=== PATIENT | male | born 1950 | race Caucasian/White ===

== ENCOUNTER → 2017-06-18 | Day surgery (SDC) | payer BC, OTHER ==
[~2017-06-18] MED LIST: B & O ONE; CEFAZOLIN 1 GM VIAL ONE; CEFAZOLIN/Water 2 GM/20 ML SYRINGE ONE; Dexamethasone 20 MG/5 ML VIAL ONE; Fentanyl 100 MCG/2 ML VIAL ONE; Iothalamate Meglumine 60% 50 ML VIAL FS ONE; Ketorolac Tromethamine 30 MG/ML VIAL ONE; Lidocaine 1% PF 5 ML VIAL ONE; Midazolam HCl 2 mg/2 ml Vial ONE; Morphine 4 MG/ML VIAL ONE; Ondansetron HCl/PF 4 MG/2 ML Vial ONE; Propofol 200 MG/20 ML VIAL ONE; Sterile Water 10 ML VIAL ONE
[2017-06-18 14:06] LABS: #Eosinphils 0.4 thou/uL (0.0-0.7); #Lymphocytes 1.3 thou/uL (1.20-3.40); #Monocytes 0.9 thou/uL (0.11-0.59); #Neutrophils 7.8 thou/uL (1.40-6.50); %Basophils 0.3 % (0.0-1.0); %Eosinophils 3.4 % (0.0-10.0); %Lymphocytes 12.4 % (21.0-51.0); %Monocytes 8.5 % (0.0-10.0); Hematocrit 47.5 % (42.0-52.0); Mean Platelet Volume 8.5 fL (7.4-10.4); Red Blood Cell (RBC) Count 5.06 mill/uL (4.70-6.10); White Blood Cell (WBC) Count 10.3 thou/uL (4.8-10.8)
[2017-06-18 14:29] LABS: ALT (SGPT) 34 U/L (8-55); AST (SGOT) 22 U/L (5-34); Alkaline Phosphatase 53 U/L (40-150); Anion Gap 12 mmol/L (10-20); BUN (Urea Nitrogen) 21 mg/dL (8.4-25.7); Bilirubin, Total 1.1 mg/dL (0.2-1.2); Calc. Creatinine Clearance 0 mL/min (70-130); Calcium 9.7 mg/dL (7.8-10.44); Carbon Dioxide 26 mmol/L (23-31); Chloride 105 mmol/L (98-107); Estimated GFR-MDRD 75; Globulin 2.8 g/dL (2.4-3.5); Lipase 17 U/L (8-78); Protein, Total 6.9 g/dL (5.8-8.1)
--- NOTE | 2017-06-18 18:34 | CT ---
NONCONTRAST CT ABDOMEN AND PELVIS 06/18/17 HISTORY: Right flank pain with pain radiating to the abdomen. History of prior kidney stones. COMPARISON: 01/22/10. FINDINGS: Again noted are postsurgical changes related to cholecystectomy. There are nonobstructing bilateral renal calculi again noted. There is mild right hydronephrosis and hydroureter with a calculus seen at the right UVJ measuring approximately 10 mm. No left ureteral maurisio culus is present. There is a 3.8 cm low density lesion mid portion of the right kidney which does demonstrate an atten uation coefficient suggestive of a cyst. This is larger in size compared to prior study in 2009 where this measured 2.2 cm but again is likely related to enlargement of the cyst. There is asymmetric perinephric stranding seen on the right compared to the left. There is bibasilar atelectasis. The liver, spleen, pancreas, bilateral adrenal glands, and decompressed urinary bladder demonstrate a grossly normal nonenlarged CT appearance. The appendix is visualized and normal in caliber. Degenerative changes are seen in the spine. IMPRESSION: 1. Partially obstructing right UVJ calculus measuring 10 mm with resultant mild to moderate righ t hydronephrosis and hydroureter. 2. Nonobstructing bilateral nephrolithiasis. Enlargement of a right renal cyst. 3. Postcholecystectomy changes. POS: WILLARD
--- NOTE | 2017-06-18 22:19 | OP ---
DATE OF PROCEDURE: 06/18/2017 PREOPERATIVE DIAGNOSIS: Right ureteral stone. POSTOPERATIVE DIAGNOSIS: Right ureteral stone, right complete duplication of the ureter. SURGEON: Gamal Vela M.D. ANESTHESIA: General. INDICATIONS: Mr. Walekr was presented to the emergency room with acute onset of right-sided flank pain . He has a prior history of stone disease, having had ESWL several years ago. Imaging demonstrated a right-sided distal ureteral stone approximately 1 cm in size. DETAILS OF PROCEDURE: The patient was given general anesthesia and IV antibiotics. He was sterilely prepped and draped in the lithotomy position. Cystoscope was passed into the bladder and bladder ex amined in its entirety. There were no mucosal abnormalities. Right ureteral orifice was intubated w ith a floppy tip guidewire, which was passed cephalad under fluoroscopic control. There was also ano ther ureteral orifice was noted in very close proximity. After the first stent was placed, a retrogr fauzia pyelogram was performed on the other ureteral orifice and it did contain the stone and was associ ated with the upper pole of the right kidney. A guidewire was passed through this ureter and a 6 x 2 8 double-J stent was passed over the guidewire and coiled in the right renal pelvis and in the bladde r as determined fluoroscopically and cystoscopically. The previous right ureteral stent, that was as sociated with the right lower pole moiety, was grasped and removed. The bladder was drained and cyst oscope was removed. The patient tolerated the procedure well. He was transported from the operating room to recovery room in stable condition. COMPLICATIONS: None. ESTIMATED BLOOD LOSS: Minimal.
--- NOTE | 2017-06-19 01:35 | CON ---
DATE OF CONSULTATION: 06/18/2017 CHIEF COMPLAINT: Right ureteral stone. HISTORY OF PRESENT ILLNESS: Mr. Walker is a 66-year-old gentleman who presented to the emergency room with acute onset of right-sided flank pain. He has a prior history of stones and felt this was remin iscent of that pain. He also had associated nausea. He denies any fevers or chills. He denies any change in his urinary pattern. Prior treatment for his stone was ureteral stent placement followed b y ESWL. This was approximately [address] Kevin. PAST MEDICAL HISTORY: Hypertension. PAST SURGICAL HISTORY: Thyroid surgery, left knee surgery, left biceps tendon repair, cholecystectom y, ESWL. ALLERGIES: No known drug allergies. SOCIAL HISTORY: He is a nonsmoker. Denies alcohol overuse. CHRONIC MEDICATIONS: Please see MAR. REVIEW OF SYSTEMS: Neurologic: No altered mental status or dementia. HEENT: No recent changes in thyroid function. He has had thyroid surgery before. Respiratory: Denies any wheezing or shortnes s of breath. Cardiovascular: Denies any chest pain or palpitations. Gastrointestinal: Denies chemist steroids neil constipation or diarrhea. Musculoskeletal: No new joint or muscle complaints. Genitourinary: Please see history of present illness. PHYSICAL EXAMINATION: VITAL SIGNS: Most recent blood pressure is 165/100, pulse 66, respiratory rate 20, temperature 97.8. HEENT: Normocephalic, atraumatic. NECK: Supple, without masses. LUNGS: Clear to auscultation. CARDIOVASCULAR: Regular rhythm. ABDOMEN: Soft, nontender. No palpable masses. Liver and spleen are palpable. No abdominal tendern ess noted. IMPRESSION: Mr. Walker is a 66-year-old gentleman with a 1 cm distal right ureteral stone. He had isabela n that was difficult to control in the emergency room. He is opted to proceed with a stent placement . He understands he will require additional surgery for treatment of the stone in the future. It is also possible the stent will not be easily placed and he would need percutaneous nephrolithotripsy. The procedure, potential limitations, alternatives, and complications have been discussed with him a nd he does wish to proceed. PLAN: Cystoscopy, right double-J stent placement.
== END ==
LOC: ERS 13:42 → SDC 15:25
PROVIDERS: ATTEND Urology
PROC: 0TC68ZZ Extirpation of Matter from Right Ureter, Via Natural or Artificial Opening Endoscopic (ICD-10-PCS; principal; 2017-06-18)
PROC: 0T768DZ Dilation of Right Ureter with Intraluminal Device, Via Natural or Artificial Opening Endoscopic (ICD-10-PCS; principal; 2017-06-18)
DX: N20.1 Calculus of ureter (principal); Z98.890 Other specified postprocedural states
CPT/HCPCS: 36415; 74176; 74420; 80053; 83690; 85025; 96361; 96374; 96375; A4216; C1758; C1769; J0690; J1100; J1885; J2001; J2250; J2270; J2405; J2704; J3010; Q9961

== ENCOUNTER 2018-08-07 07:03 | Outpatient (CLI) | payer BC, MEDICARE ==
[2018-08-07 17:37] LABS: Anion Gap 12 mmol/L (10-20); BUN (Urea Nitrogen) 31 mg/dL (8.4-25.7); Calc. Creatinine Clearance 0 mL/min (70-130); Calcium 9.4 mg/dL (7.8-10.44); Carbon Dioxide 24 mmol/L (23-31); Chloride 108 mmol/L (98-107); Estimated GFR-MDRD 61; Glucose 81 mg/dL (80-115); Potassium 4.2 mmol/L (3.5-5.1); Sodium 140 mmol/L (136-145)
[2018-08-07 17:49] LABS: Bilirubin Negative (Negative); Blood, Urine Negative (Negative); Clarity CLEAR (Clear); Glucose, Urine (Dipstick) Negative (Negative); Leukocyte Negative (Negative); Nitrite Negative (Negative); Protein, Urine (Dipstick) Negative (Neg-Trace); Specific Gravity, Urine 1.021 (1.002-1.036); pH, Urine 6.5 (5.0-9.0)
[2018-08-07 17:54] LABS: Bacteria/HPF None Seen HPF (None Seen); Hyaline Casts/LPF 0-3 HYALINE CAST LPF (0-3 Hyaline); RBC/HPF 0-3 HPF (0-3); Squamous Epithelial None Seen HPF (0-3); WBC/HPF None Seen HPF (0-3)
[2018-08-07 19:35] LABS: Eosinophils 10 % (0-10); Hemoglobin 15.6 g/dL (14.0-18.0); Lymphocytes 27 % (21-51); MDiff Complete? YES; Mean Corpuscular HGB CONC 34.9 g/dL (32.0-36.0); Mean Corpuscular Hemoglobin 31.7 pg (27.0-31.0); Mean Corpuscular Volume 90.8 fL (78.0-98.0); Mean Platelet Volume 9.3 fL (7.4-10.4); Monocytes 12 % (0-10); Neutrophil 47 % (42-75); Platelet Count 178 thou/uL (130-400); Platelet Morphology Comment Appears Adequate; RBC Distribution Width 11.9 % (11.5-14.5); RBC Morphology Normal; Reactive Lymphocytes 3 % (0-10); Red Blood Cell (RBC) Count 4.92 mill/uL (4.70-6.10); White Blood Cell (WBC) Count 6.3 thou/uL (4.8-10.8)
== END 2018-08-07 07:04 | disposition home or self-care (01) ==
LOC: LABBT 07:03
PROVIDERS: ATTEND Orthopaedic Surgery
DX: Z01.818 Encounter for other preprocedural examination (principal); M19.012 Primary osteoarthritis, left shoulder
CPT/HCPCS: 80048; 81001; 85007; 85027; 87081; 93005; 93010

== ENCOUNTER 2018-08-07 15:15 | Inpatient (IN) | payer BC, MEDICARE ==
[2018-08-07 16:09] VITALS: BMI 32.3
[2018-08-10] MEDS ORDERED: Sodium Chloride 0.9% 100 ML ONE (06:02)
[2018-08-10] MEDS ORDERED: CEFAZOLIN 2 GM/50 ML BAG ONE (06:02)
[2018-08-10] MEDS ORDERED: Tranexamic Acid 1,000 MG/10 ML VIAL ONE (06:02)
[2018-08-10] MEDS ORDERED: Vancomycin HCl 1.5 GM in Sodium Chloride 0.9% 250 ML 300 ML IVPB SCH ×2 (06:15→18:00)
[2018-08-10] MEDS ORDERED: Fentanyl 100 MCG/2 ML VIAL ONE ×2 (06:36→07:08)
[2018-08-10] MEDS ORDERED: Midazolam HCl 2 mg/2 ml Vial ONE (06:36)
[2018-08-10] MEDS ORDERED: Famotidine/PF 20 mg/2ml Vial ONE (07:08)
[2018-08-10] MEDS ORDERED: traMADol HCl 50 MG TAB PO PRN ×4 (08:23→12:05)
[2018-08-10] MEDS ORDERED: Ropivacaine 0.2% 550 ML 550 ML NERVE BLCK SCH (08:23)
[2018-08-10] MEDS ORDERED: HYDROcodone/Acetaminophen 10/325 mg Tablet PO PRN ×4 (08:23→12:05)
[2018-08-10] MEDS ORDERED: Promethazine HCl 25 MG/ML VIAL IM PRN (08:23)
[2018-08-10] MEDS ORDERED: Ondansetron PF 4 MG/2 ML Vial IVP PRN ×2 (08:23→12:05)
[2018-08-10] MEDS ORDERED: Zolpidem Tartrate 5 MG TAB PO PRN ×2 (08:23→12:05)
[2018-08-10] MEDS ORDERED: Fentanyl 100 MCG/2 ML VIAL SLOW IVP PRN (08:24)
[2018-08-10] MEDS ORDERED: Acetaminophen 1,000 MG in Premix Bag 1 BAG IVPB PRN (08:25)
--- NOTE | 2018-08-10 11:55 | RAD ---
LEFT SHOULDER THREE VIEWS: HISTORY: Postop film. FINDINGS: This film shows postoperative changes of the shoulder with a left humeral prosthesis placed. Post abernathy rgical changes of the glenoid region are noted. IMPRESSION: Postoperative changes of the left shoulder. Prosthesis appears to be in good position. No signs of fracture. POS: OFF
[2018-08-10] MEDS ORDERED: Methocarbamol 1 GM/10 ML VIAL SLOW IVP PRN (12:05)
[2018-08-10] MEDS ORDERED: CEFAZOLIN/Water 2 GM/20 ML SYRINGE SLOW IVP SCH (12:05)
[2018-08-10] MEDS ORDERED: diphenhydrAMINE 50 MG CAP PO PRN (12:05)
[2018-08-10] MEDS ORDERED: Methocarbamol 500 MG TAB PO PRN (12:05)
[2018-08-10] MEDS ORDERED: Ondansetron ODT 4 MG TAB PO PRN (12:05)
[2018-08-10] MEDS ORDERED: Acetaminophen 325 MG TAB PO PRN (12:05)
[2018-08-10] MEDS ORDERED: Milk Of Magnesia 30 ML UDCUP PO PRN (12:05)
[2018-08-10] MEDS ORDERED: Bisacodyl 10 MG SUPP PR PRN (12:05)
[2018-08-10] MEDS: Ketorolac Tromethamine 30 MG/ML VIAL IVP SCH ×3 (12:49→23:51)
[2018-08-10] MEDS: Dextrose 5 %-0.45 % NaCl 1,000 ML IV SCH (12:49)
[2018-08-10] MEDS: CEFAZOLIN 2 GM/50 ML-DEXTROSE 2 GM in Premix Bag 1 BAG IVPB SCH ×2 (15:22→23:51)
--- NOTE | 2018-08-10 15:32 | OP ---
DATE OF PROCEDURE: 08/10/2018 PREOPERATIVE DIAGNOSIS: Left shoulder osteoarthritis with biceps tendinopathy. POSTOPERATIVE DIAGNOSIS: Left shoulder osteoarthritis with biceps tendinopathy. PROCEDURES PERFORMED: 1. Left total shoulder arthroplasty. 2. Left biceps tenodesis. COMPLAINT INSPECTOR: Otilia Tsai PA-C. ANESTHESIOLOGIST: Afsaneh. ANESTHESIA: The patient received a general endotracheal intubation with interscalene block. ESTIMATED BLOOD LOSS: 300 mL. TOURNIQUET TIME: None. IMPLANTS: Tornier L40 CortiLoc glenoid with a 3B flex stem, a 50 x 160 mm high offset head. ANTIBIOTICS: Ancef 2 g, vancomycin 1.5 g, TXA 1 g. COMPLICATIONS: None. HISTORY OF PRESENT ILLNESS: Mr. Walker is a 67-year-old male presented with left shoulder pain for many years. He had undergone surgical management, which he had failed. He elected to perform a left total shoulder arthroplasty. He understood the risks and benefits of surgery, pain, scar bleeding, infection, damage to vital structures, decreased range of motion and strength, continued pain despite surgical intervention, loss of life or limb. The patient understood the risks and benefits and would like to proceed. DESCRIPTION OF PROCEDURE: A time-out was performed designating the patient's left upper extremity as the operative site, based on site, consent, and marking. After time-out, the patient's arm was prepped and draped in a sterile fashion in beach chair position. I did a deltopectoral incision. The patient had copious bleeding , some varicosities but also because of I think because of some ibuprofen use of the patient, so took time to cauterize multiple skin bleeders with the deltopectoral interval. We came down found the vein, took it laterally, exposed conjoints placed our Kobel into position to expose, found the biceps. Going down the lateral aspect of the biceps groove came down onto the biceps, subsequently there is a peel and then after completion of the peel, did our exposure for the patient's humerus, placed yara complete release inferiorly taken off osteophytes, staying on bone capsular attachments of the neck. We came back. We placed our guide cut our head. We then machined down to 3, cleaned off the head, placed the kale and bankart and removed glenoid at 360 degree release thing on bone throughout, completely released the glenoid to expose. I placed our [place] retractor posteriorly after 360-degree release and being happy with the exposure. I found the nerve protected throughout. We did place our guide measured for L40. We drilled our center hole, reamed and placed our L40 in position, drilled our 3 holes. We then cemented allowing after we had trialed feeling good bit. We then moved back holding placement back to the humerus actually trialed it first and put the humerus in position after I cleaned out. I felt like we were still little tight, so I impacted it down about a millimeter or 2, which did help with excursion posteriorly. We elected for a 50 x 160 mm high offset head and felt like that covered the majority of the head, otherwise overall good match with the large glenoid. We then washed. We placed our final humeral head. I would pass #5 Ethibond through the lesser tuberosity on the medial aspect through bone x4 and one suture in and out through the lateral aspect of the tuberosity for my overtop stitch, which I passed through the stem. The stem was passed down. We then sewed the subscapularis down with stitches up and down, sewing it to the lesser tuberosity. We then cut those limbs. We sewed the interval with #1 Ethibond. We then closed between each subscap as well as the lateral cuff with #1 Ethibond. We closed the interval on top and then used the # 5 stitch that I had left in the subscap and rotator lateral aspect of the tuberosity to sew over the top and cut both limbs. We then washed and we had good overall repair of the subscap. We then washed our layers, came out, closing the deltopectoral interval , closing subcu with 0, 2-0 and chad. The patient will be admitted to the hospital. We followed inhouse, received pain control per Anesthesia, and will be discharged home tomorrow. Job ID: [id number] [facility]
[2018-08-10] MEDS: Famotidine 20 MG TAB PO SCH (20:02)
[2018-08-11] MEDS: Dextrose 5 %-0.45 % NaCl 1,000 ML IV SCH (06:52)
[2018-08-11] MEDS: Ketorolac Tromethamine 30 MG/ML VIAL IVP SCH ×2 (06:52→11:52)
[2018-08-11] MEDS: Famotidine 20 MG TAB PO SCH (08:25)
[2018-08-11 12:08] VITALS: BP 146/88; TEMP 97.9
== END 2018-08-11 12:08 | disposition home or self-care (01) | DRG 483 ==
LOC: SURG A 08-10 05:49 → SURG B 08-10 12:05
PROVIDERS: ADMIT Orthopaedic Surgery; ATTEND Orthopaedic Surgery
PROC: 0RRK0JZ Replacement of Left Shoulder Joint with Synthetic Substitute, Open Approach (ICD-10-PCS; principal; 2018-08-10)
PROC: 0LS40ZZ Reposition Left Upper Arm Tendon, Open Approach (ICD-10-PCS; 2018-08-10)
DX: M19.012 Primary osteoarthritis, left shoulder (principal); M75.22 Bicipital tendinitis, left shoulder
CPT/HCPCS: 80048; 81001; 85007; 85027; 87081; 93005; 93010; A4306; C1713; J0131; J1885; J2250; J2795; J3010; J3370; J7050; S0028

== ENCOUNTER 2019-09-10 07:04 | Emergency (ER) | payer BC, MEDICARE ==
[2019-09-10] MEDS ORDERED: Fentanyl 100 MCG/2 ML VIAL ONE (07:34)
[2019-09-10 07:35] LABS: #Eosinphils 0.3 thou/uL (0.0-0.7); #Monocytes 1.1 thou/uL (0.11-0.59); #Neutrophils 9.9 thou/uL (1.40-6.50); %Basophils 0.2 % (0.0-1.0); %Eosinophils 2.1 % (0.0-10.0); %Lymphocytes 8.4 % (21.0-51.0); %Monocytes 9.2 % (0.0-10.0); %Neutrophils 80.2 % (42.0-75.0); Hemoglobin 16.1 g/dL (14.0-18.0); Mean Corpuscular HGB CONC 34.8 g/dL (32.0-36.0); Mean Corpuscular Hemoglobin 32.1 pg (27.0-31.0); Mean Corpuscular Volume 92.4 fL (78.0-98.0); Mean Platelet Volume 8.4 fL (7.4-10.4); Platelet Count 188 thou/uL (130-400); Red Blood Cell (RBC) Count 5.01 mill/uL (4.70-6.10); White Blood Cell (WBC) Count 12.4 thou/uL (4.8-10.8)
[2019-09-10] MEDS ORDERED: Ondansetron PF 4 MG/2 ML Vial ONE (07:35)
[2019-09-10] MEDS ORDERED: Ketorolac Tromethamine 30 MG/ML VIAL ONE (07:35)
[2019-09-10 07:50] LABS: ALT (SGPT) 29 U/L (8-55); AST (SGOT) 19 U/L (5-34); Albumin 4.1 g/dL (3.4-4.8); Alkaline Phosphatase 71 U/L (40-110); Anion Gap 12 mmol/L (10-20); BUN (Urea Nitrogen) 21 mg/dL (8.4-25.7); Bilirubin, Total 1.4 mg/dL (0.2-1.2); Calc. Creatinine Clearance 0 mL/min (70-130); Carbon Dioxide 28 mmol/L (23-31); Chloride 105 mmol/L (98-107); Estimated GFR-MDRD 64; Globulin 2.9 g/dL (2.4-3.5); Glucose 123 mg/dL (80-115); Lipase 12 U/L (8-78); Potassium 3.6 mmol/L (3.5-5.1); Sodium 141 mmol/L (136-145)
[2019-09-10 08:00] LABS: Bacteria/HPF None Seen HPF (None Seen); Bilirubin Negative (Negative); Blood, Urine 2+ (Negative); Clarity Clear (Clear); Glucose, Urine (Dipstick) Normal (Negative); Leukocyte 25 Leu/uL (Negative); Nitrite Negative (Negative); Protein, Urine (Dipstick) 20 mg/dL (Neg-Trace); RBC/HPF 21-50 HPF (0-3); Squamous Epithelial 0-3 HPF (0-3); Urobilinogen Normal mg/dL (Less than 2)
[2019-09-10 08:06] LABS: CK (CPK) 78 U/L (30-200)
--- NOTE | 2019-09-10 08:16 | CT ---
CT abdomen and pelvis noncontrast HISTORY: Right flank pain. COMPARISON: 06/18/2017. FINDINGS: The right renal collecting system is distended to the level of an oval UPJ calculus that is 0.6 cm length by 0.5 cm width. The right ureter beyond this point is not completely decompressed but not significantly dilated. No other ureteral stones evident. Within calyces of the right kidney, multiple additional calcifications are present, measuring up to 0 .8 cm at the superior pole. 2 calcifications within nondilated calyces of the left kidney are present, measuring up to 0.6 cm the superior pole. Lack of contrast limits evaluation for other abnormalities. 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 Lobular partially exophytic cyst at the inferior pole of the right kidney is similar in appearance to the previous exam. There are prominent degenerative c hanges of the lumbar spine including multilevel central canal and foraminal stenoses. Gallbladder is surgically absent. IMPRESSION: Partial obstruction at a 6 mm right UPJ calculus. Additional nonobstructing bilateral renal calculi.
== END 2019-09-10 09:28 | disposition home or self-care (01) ==
LOC: ERS 07:04
DX: N20.1 Calculus of ureter (principal); I10 Essential (primary) hypertension; Z87.891 Personal history of nicotine dependence; Z79.899 Other long term (current) drug therapy
CPT/HCPCS: 74176; 80053; 81003; 81015; 82550; 83690; 85025; 96361; 96374; 96375; J1885; J2405; J3010

== ENCOUNTER 2019-09-10 19:07 | Observation (INO) | payer BC, MEDICARE ==
[2019-09-10] MEDS ORDERED: Ondansetron ODT 4 MG TAB ONE (19:18)
[2019-09-10] MEDS ORDERED: Morphine 4 MG/ML VIAL ONE ×2 (20:02→20:18)
[2019-09-10] MEDS ORDERED: Ketorolac Tromethamine 30 MG/ML VIAL ONE (20:18)
[2019-09-10 20:25] LABS: #Basophils 0.1 thou/uL (0.0-0.2); #Eosinphils 0.1 thou/uL (0.0-0.7); #Monocytes 0.9 thou/uL (0.11-0.59); #Neutrophils 8.2 thou/uL (1.40-6.50); %Basophils 0.5 % (0.0-1.0); %Eosinophils 1.4 % (0.0-10.0); %Neutrophils 79.2 % (42.0-75.0); Mean Corpuscular HGB CONC 35.6 g/dL (32.0-36.0); Mean Corpuscular Hemoglobin 32.7 pg (27.0-31.0); Mean Corpuscular Volume 91.9 fL (78.0-98.0); Mean Platelet Volume 8.6 fL (7.4-10.4); Platelet Count 200 thou/uL (130-400); RBC Distribution Width 11.7 % (11.5-14.5); White Blood Cell (WBC) Count 10.3 thou/uL (4.8-10.8)
[2019-09-10 20:47] LABS: ALT (SGPT) 124 U/L (8-55); AST (SGOT) 84 U/L (5-34); Albumin 4.1 g/dL (3.4-4.8); Alkaline Phosphatase 78 U/L (40-110); Anion Gap 15 mmol/L (10-20); BUN (Urea Nitrogen) 22 mg/dL (8.4-25.7); Bilirubin, Total 1.3 mg/dL (0.2-1.2); Calc. Creatinine Clearance 0 mL/min (70-130); Carbon Dioxide 24 mmol/L (23-31); Chloride 106 mmol/L (98-107); Estimated GFR-MDRD 58; Globulin 2.9 g/dL (2.4-3.5); Glucose 113 mg/dL (80-115); Lipase 64 U/L (8-78); Potassium 3.7 mmol/L (3.5-5.1); Sodium 141 mmol/L (136-145)
[2019-09-10 21:21] LABS: Bacteria/HPF None Seen HPF (None Seen); Bilirubin Negative (Negative); Blood, Urine 2+ (Negative); Clarity Clear (Clear); Glucose, Urine (Dipstick) Normal (Negative); Leukocyte 75 Leu/uL (Negative); Nitrite Negative (Negative); Protein, Urine (Dipstick) 10 mg/dL (Neg-Trace); Squamous Epithelial None Seen HPF (0-3); Urobilinogen Normal mg/dL (Less than 2)
--- NOTE | 2019-09-10 22:20 | CT ---
CT STONE PROTOCOL: History: Left flank pain. Comparison: CT scan same date, 7:49 a.m. FINDINGS: Calculi in the kidneys are again seen bilaterally along with right sided cyst. The 6 mm calculus at t he right UPJ is again seen with mild hydronephrosis. There has been interval development of mild left sided hydroureteronephrosis secondary to the 4 mm calculus in the left distal ureter seen on the pre vious exam. The calculus in the left distal ureter is again seen and remains proximal to the UVJ. The re is left perinephric inflammatory change which is greater compared to the previous study. Small hiatal hernia, pervious cholecystectomy, colonic diverticulosis are again noted. No free air or free fluid is seen in the abdomen or pelvis. IMPRESSION: 1. Stable 6 mm calculus in the right UPJ. 2. Bilateral renal calculi. 3. 4 mm distal left ureteral calculus showing signs of obstruction. POS: OFF
[2019-09-11] MEDS ORDERED: Morphine 4 MG/ML VIAL SLOW IVP PRN (00:12)
[2019-09-11] MEDS ORDERED: Acetaminophen 325 MG TAB PO PRN (00:13)
[2019-09-11] MEDS ORDERED: Ondansetron PF 4 MG/2 ML Vial IVP PRN (00:13)
[2019-09-11] MEDS ORDERED: HYDROcodone/Acetaminophen 5/325 mg Tablet PO PRN ×2 (00:13)
[2019-09-11] MEDS ORDERED: Ondansetron ODT 4 MG TAB SL PRN (00:13)
[2019-09-11] MEDS: Sodium Chloride 0.9% 1,000 ML IV SCH ×2 (01:00→09:21)
[2019-09-11] MEDS ORDERED: Ketorolac Tromethamine 30 MG/ML VIAL IVP SCH (06:00)
[2019-09-11] MEDS ORDERED: Prevnar 13-Val Conj/PF 0.5 ML SYRINGE IM ONE (09:00)
[2019-09-11] MEDS ORDERED: FLU VACC TS2019-20(65YR UP)/PF 180 MCG/0.5 ML SYRINGE IM ONE (09:00)
[2019-09-11] MEDS ORDERED: Ondansetron PF 4 MG/2 ML Vial ONE (09:54)
[2019-09-11] MEDS ORDERED: PROPOFOL 200 MG/20 ML VIAL ONE (09:54)
[2019-09-11] MEDS ORDERED: Lidocaine 1% PF 5 ML VIAL ONE (09:54)
[2019-09-11] MEDS ORDERED: HYDROcodone/Acetaminophen 7.5/325 mg Tablet PO PRN (11:09)
[2019-09-11] MEDS ORDERED: Ondansetron ODT 8 MG TAB SL PRN (11:10)
[2019-09-11] MEDS ORDERED: Sodium Chloride 0.9% 1,000 ML IV SCH (11:15)
[2019-09-11] MEDS ORDERED: Morphine 2 MG/ML SYRINGE SLOW IVP PRN (11:34)
[2019-09-11 11:36] LABS: #Eosinphils 0.2 thou/uL (0.0-0.7); #Lymphocytes 1.5 thou/uL (1.20-3.40); #Monocytes 0.9 thou/uL (0.11-0.59); #Neutrophils 4.9 thou/uL (1.40-6.50); %Basophils 0.2 % (0.0-1.0); %Eosinophils 3.1 % (0.0-10.0); %Lymphocytes 19.5 % (21.0-51.0); %Monocytes 12.1 % (0.0-10.0); %Neutrophils 65.1 % (42.0-75.0); Hemoglobin 13.6 g/dL (14.0-18.0); Mean Corpuscular HGB CONC 34.7 g/dL (32.0-36.0); Mean Corpuscular Hemoglobin 32.3 pg (27.0-31.0); Mean Corpuscular Volume 93.2 fL (78.0-98.0); Mean Platelet Volume 8.5 fL (7.4-10.4); Platelet Count 155 thou/uL (130-400); RBC Distribution Width 11.7 % (11.5-14.5); Red Blood Cell (RBC) Count 4.21 mill/uL (4.70-6.10); White Blood Cell (WBC) Count 7.5 thou/uL (4.8-10.8)
[2019-09-11 12:01] LABS: ALT (SGPT) 324 U/L (8-55); AST (SGOT) 224 U/L (5-34); Albumin 3.2 g/dL (3.4-4.8); Alkaline Phosphatase 107 U/L (40-110); Anion Gap 9 mmol/L (10-20); BUN (Urea Nitrogen) 24 mg/dL (8.4-25.7); Bilirubin, Total 1.4 mg/dL (0.2-1.2); Calc. Creatinine Clearance 74 mL/min (70-130); Calcium 8.3 mg/dL (7.8-10.44); Carbon Dioxide 27 mmol/L (23-31); Chloride 110 mmol/L (98-107); Estimated GFR-MDRD 43; Globulin 2.6 g/dL (2.4-3.5); Glucose 90 mg/dL (80-115); Potassium 4.1 mmol/L (3.5-5.1); Protein, Total 5.8 g/dL (5.8-8.1); Sodium 142 mmol/L (136-145)
[2019-09-11] MEDS ORDERED: Ketorolac Tromethamine 30 MG/ML VIAL IVP PRN (14:08)
[2019-09-11] MEDS ORDERED: Iothalamate Meglumine 60% 50 ML VIAL FS ONE (19:26)
[2019-09-11] MEDS ORDERED: B & O ONE (19:41)
[2019-09-11] MEDS ORDERED: Levofloxacin 500 mg/D5W 100 ml Premix Bag ONE (19:43)
--- NOTE | 2019-09-11 20:28 | RAD ---
RIGHT RETROGRADE PYELOGRAM: 09/11/19 HISTORY: Right flank pain, stent placement. FINDINGS/IMPRESSION: Three spot fluoroscopic intraoperative images from a right sided retrograde pyelogram demonstrates go od opacification of the right ureter and pelvicalyceal system without persistent filling defects. On the third image there are defects in the upper ureter which are not seen on the second image. POS: OFF
[2019-09-11] MEDS ORDERED: Phenazopyridine HCl 97.5 MG TABLET PO SCH (21:00)
[2019-09-11] MEDS ORDERED: Trospium 20 MG TAB PO SCH (21:00)
[2019-09-11 21:23] VITALS: BP 152/81; TEMP 98
--- NOTE | 2019-09-12 01:37 | OP ---
DATE OF PROCEDURE: 09/11/2019 PREOPERATIVE DIAGNOSIS: Bilateral obstructing ureteral calculi. POSTOPERATIVE DIAGNOSES: 1. Bilateral ureteral calculi, N20.1. 2. Right-sided prostate nodule. 3. Meatal stenosis. 4. Urethral stricture approximately 2 cm distal to urinary sphincter. PROCEDURES PERFORMED: 1. Cystourethroscopy with bilateral stent placement, 23961-42. 2. Bilateral retrograde pyelography, 65752-21. TOURIST CAMP ATTENDANT: None. SPECIMENS REMOVED: Urine for culture was collected from the patient's left ureter in which urine had particulates in it. ESTIMATED BLOOD LOSS: 0 mL. COMPLICATIONS: None evident. OPERATIVE FINDINGS: 1. Pair of 4.5 x 28 cm stents were placed, one in the left ureter, one in the right, strings were removed from the stents. Bilateral ureteral calculi were observed, which appeared to be radiopaque. 2. The patient has right-sided palpable prostate nodule, which is indurated and suspicious. BRIEF HISTORY AND INDICATION FOR PROCEDURE: Mr. Bakari Walker is a long-term recurrent kidney stone former, known to my colleague, Dr. Gamal Vela, and prior to that to the [facility] or now retired. Mr. Walker is a recurrent kidney stone former and does not report a previous risk evaluation. He is uncertain of what type stones he has. The patient presented to the emergency department on the evening hours of 09/10/2019, with complaint of bilateral flank pain. He had been seen the week prior with right-sided flank pain, but had new onset left flank pain. The patient was evaluated and underwent CT scanning in the emergency department with the presence of left more distal ureteral calculus, not quite to the ureterovesical junction and proximal right-sided ureteropelvic junction calculus. The patient was admitted and stabilized with appropriate antibiotics and IV hydration. The patient had containing rise in his creatinine due to the bilateral obstructing calculi and subsequently elected to proceed to the operating room for evaluation and treatment. DESCRIPTION OF PROCEDURE: The patient was appropriately identified in the preoperative holding area and informed consent was obtained. The patient was brought to the operative suite, placed in the supine position. General anesthesia was established using LMA airway. The patient was repositioned in supine lithotomy position, prepped and draped in usual sterile fashion. Cystoscopic evaluation was performed. After appropriate time-out included identification of patient, procedure to be performed as well as laterality, the patient underwent cystoscopic evaluation and initially evaluated the patient's right side. We passed a 0.035 angled Glidewire via a 5-Qatari [place] catheter. The patient has clear drainage from the collecting system. Based on this, we performed retrograde pyelography. It showed a relatively delicate collecting system with some dilation above the level of the iliac vessels. It appeared to be possible calcification of the level of the ureteropelvic junction behind the patient's abdomen. I performed retrograde pyelogram study, subsequently placed a 4.5-Qatari x 28 cm double-J ureteral stent in the right ureter. String was removed from the stent. The collecting system on the right side was allowed to drain. I then performed a similar procedure on the patient's left side except on this side. There was high-pressure drainage from the left collecting system. Based on this and the particulates observed in the urine, we collected urine specimen and sent that for culture. A 4.5-Qatari double-J ureteral stent was also placed over the wire into the patient's collecting system following retrograde pyelography. Retrograde pyelography did demonstrate a filling defect distally in the patient's ureter on the left side. This was partially radiopaque, but bulk of this stone in this case appeared to be radiolucent. Good coil was obtained in the patient's renal pelvis, as well as in the patient's bladder. String was removed from the stent on the patient's left side. The patient's bladder was completely drained. Additional radiographic images were obtained. The patient received 16A 60 mg belladonna and opioid suppository per rectum at the close of the procedure for control of bladder spasms as he has had trouble with this in the past. Digital rectal examination under anesthesia reveals presence of a large right-sided prostate nodule, which is markedly indurated. Recommendation would be for followup evaluation and treatment of this with PSA testing, which can be performed as an outpatient. Job ID: [id number]
--- NOTE | 2019-09-12 08:47 | HP ---
REASON FOR HOSPITALIZATION: 1. Bilateral flank pain. 2. Bilateral ureteral calculi with obstruction. HISTORY OF PRESENT ILLNESS: Bakari Walker is a pleasant 68-year-old white male, who I am acquainted with through previous care. The patient was recently The patient's current episode began with right-sided flank pain symptoms presented to the Emergency Department with new onset left-sided flank pain, nausea, and vomiting. The patient underwent , which demonstrate 4 mm left ureteral calculus, which is proximal to the vesicle junction. The patient due to his bilateral obstructing kidneys, elevation of his creatinine and white count, was admitted for observation overnight and placed on IV fluid resuscitation. ALLERGIES: THE PATIENT DENIES ANY DRUG ALLERGIES. MEDICATIONS: Medication list includes the followin. Diovan or valsartan one tablet p.o. daily. 2. Meloxicam or Mobic 15 mg 1 daily for arthritis. 3. Nasonex 50 mcg per actuations 2 sprays each nostril daily. 4. ProAir or Albuterol Sulfate 2 puffs as needed. 5. Ibuprofen 800 mg 1 daily with food or milk. 6. . PAST MEDICAL HISTORY: 1. Hypertension. 2. . 3. Asthma. PAST SURGICAL HISTORY: 1. Left total knee replacement 05/2010. 2. Right knee arthroscopy. 3. Left biceps tendon surgery. 4. Cholecystectomy. 5. Thyroidectomy. FAMILY MEDICAL HISTORY: No known medical history of kidney stones. SOCIAL HISTORY: The patient is a smoker and consumes alcohol. PHYSICAL EXAMINATION: VITAL SIGNS: The patient has been afebrile on the initial overnight observation. Temperature 98.4, pulse 60, respiratory rate 16, O2 saturation on room air is 96%, and blood pressure is 117/78. GENERAL: This is a pleasant, awake, alert, white male, who is a good historian. HEAD, EYES, EARS, NOSE, AND THROAT: Extraocular movements intact. Sclerae anicteric. Oropharynx is clear. NECK: Supple. LUNGS: Clear to auscultation bilaterally. CARDIAC: Regular rate and rhythm, no murmur or gallop. ABDOMEN: Soft and nontender. BACK: No costovertebral angle tenderness on percussion on either side today. Did have bilateral flank pain yesterday. GENITOURINARY: Phallus is circumcised without appears adequate. Testes are benign. Digital rectal examination was performed and deferred to operative suite. EXTREMITIES: Appear within normal limits. The patient is status post surgical changes in left knee, also to the right knee from arthroscopy. NEUROLOGIC: The patient is able to move all 4 extremities against gravity without difficulty. Gait was not tested due to the patient's complaint of earlier pain. LABORATORY DATA: Initial laboratories showed a rise in the patient's creatinine up to 1.24 with a blood urea nitrogen of 22. Immediate labs in the morning show a blood urea nitrogen of 24 with a creatinine of 1.63, indicating an elevation. Potassium remained within normal range at 4.1. Hematologic profile shows some improvement with hydration overnight with the patient's white count down from 10.3 to 7.5 this morning. Neutrophil count has now improved with initial neutrophil percentage of 79.2%, now down to 65.1%. ANC improved to 4.9 in the normal range from 8.[address] scan of the abdomen and pelvis was reviewed. This shows presence of a right ureteropelvic junction calculus measuring [address] scan from last night also demonstrates a 4 mm left ureteral calculus located distally. There is proximal hydroureter. There are no signs to suggest actual inflammation caused by an inflammatory process. No tumor distal right kidney. This has a generally benign appearance on contrast study. ASSESSMENT: 1. Benign-appearing right renal cyst. 2. Bilateral ureteral obstruction. PLAN: Plan will be to take the patient to the operating room for cystoscopy and bilateral stent placement if left ureteral calculus is low enough, we might consider balloon dilation and stone extraction with stent placement to complete that side. The patient's right upper tract stone is too proximal to consider for surgical intervention other than what we are doing today. Kidney stone risk factors, the patient needs aggressive stone risk reductions . The patient's serum chemistries do not show a high serum calcium level, so other causes of calcium metabolism associated issue should be assessed. Total evaluation and consultation time was spent in the evaluation of this patient today was over 70 minutes. Job ID: [id number]
[2019-09-12] MEDS ORDERED: Phenazopyridine HCl 97.5 MG TABLET PO SCH ×2 (09:00→21:00)
== END 2019-09-11 21:47 | disposition home or self-care (01) ==
LOC: ERS 19:07 → SURG A 09-11 00:13
PROVIDERS: ADMIT Urology; ATTEND Urology
PROC: 0T788DZ Dilation of Bilateral Ureters with Intraluminal Device, Via Natural or Artificial Opening Endoscopic (ICD-10-PCS; principal; 2019-09-11)
DX: N13.2 Hydronephrosis with renal and ureteral calculous obstruction (principal); N40.2 Nodular prostate without lower urinary tract symptoms; N35.911 Unspecified urethral stricture, male, meatal; E89.0 Postprocedural hypothyroidism; K44.9 Diaphragmatic hernia without obstruction or gangrene; K57.30 Diverticulosis of large intestine without perforation or abscess without bleeding; I10 Essential (primary) hypertension; J45.909 Unspecified asthma, uncomplicated; M19.90 Unspecified osteoarthritis, unspecified site; Q61.01 Congenital single renal cyst; Z87.891 Personal history of nicotine dependence; Z79.1 Long term (current) use of non-steroidal anti-inflammatories (NSAID); Z79.899 Other long term (current) drug therapy; Z96.612 Presence of left artificial shoulder joint; Z96.652 Presence of left artificial knee joint
CPT/HCPCS: 36415; 74176; 74420; 80053; 83690; 85025; 87086; 96361; 96365; 96375; 96376; C1758; C1769; G0378; J1885; J1956; J2001; J2270; J2405; J2704; Q0162

== ENCOUNTER 2019-09-16 19:24 | Observation (INO) | payer BC ==
[2019-09-16 20:04] LABS: #Basophils 0.1 thou/uL (0.0-0.2); #Eosinphils 0.5 thou/uL (0.0-0.7); #Monocytes 0.9 thou/uL (0.11-0.59); %Basophils 0.6 % (0.0-1.0); %Eosinophils 5.4 % (0.0-10.0); %Monocytes 9.8 % (0.0-10.0); %Neutrophils 63.2 % (42.0-75.0); Hemoglobin 15.5 g/dL (14.0-18.0); Mean Corpuscular Hemoglobin 32.5 pg (27.0-31.0); Mean Corpuscular Volume 92.8 fL (78.0-98.0); Mean Platelet Volume 8.6 fL (7.4-10.4); Platelet Count 225 thou/uL (130-400); RBC Distribution Width 11.8 % (11.5-14.5); Red Blood Cell (RBC) Count 4.77 mill/uL (4.70-6.10); White Blood Cell (WBC) Count 9.4 thou/uL (4.8-10.8)
[2019-09-16 20:31] LABS: Anion Gap 14 mmol/L (10-20); BUN (Urea Nitrogen) 17 mg/dL (8.4-25.7); Calc. Creatinine Clearance 0 mL/min (70-130); Calcium 10.2 mg/dL (7.8-10.44); Carbon Dioxide 25 mmol/L (23-31); Chloride 108 mmol/L (98-107); Estimated GFR-MDRD 66; Glucose 105 mg/dL (80-115); Potassium 4.4 mmol/L (3.5-5.1); Sodium 143 mmol/L (136-145)
[2019-09-16 20:43] LABS: Bacteria/HPF None Seen HPF (None Seen); Bilirubin Negative (Negative); Blood, Urine 2+ (Negative); Clarity Clear (Clear); Glucose, Urine (Dipstick) Normal (Negative); Leukocyte 25 Leu/uL (Negative); Mucous/LPF Rare LPF (<2+); Nitrite Negative (Negative); Protein, Urine (Dipstick) 30 mg/dL (Neg-Trace); RBC/HPF Greater than 50 HPF (0-3); Squamous Epithelial None Seen HPF (0-3); Urobilinogen Normal mg/dL (Less than 2)
[2019-09-16] MEDS ORDERED: Ondansetron PF 4 MG/2 ML Vial ONE (20:50)
[2019-09-16] MEDS ORDERED: Morphine 4 MG/ML VIAL ONE (20:50)
--- NOTE | 2019-09-16 21:35 | CT ---
CT abdomen and pelvis noncontrast HISTORY: Right flank pain. Stones. COMPARISON: 09/10/2019. FINDINGS: Bilateral ureteral stents are now in place. The right ureteral stent extends to the decompr essed inferior pole collecting system. 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 At the ureteropelvic junction of the upper moiety, the oval calcification remains, measuring 0.6 cm length by 0.4 cm diameter. Dilatation of the upper pole moiety collecting system persists. The upper pole ureter beyond this point is decompressed. It is favored to be seen to the level of the ureterovesicular junction, although it is not clear if there is entire duplication of the ureter or if it joins the other ureter prior to insertion on the urinary bladder. Additional calcifications of the right kidney are again demonstrated, measuring up to 0.7 cm at the inferior pole moiety. Adjacent to the distal ureteral level of the left ureteral stent is a 0.4 cm calculus that was partia lly obstructing on the prior study. Left renal collecting system is now decompressed with multiple small calcifications measuring up to 0.5 cm greatest diameter. Lack of contrast limits evaluation for other abnormalities. Prominent degenerative changes of the lum bar spine. Small hiatal hernia. Diverticulum of the second portion the duodenum contains gas. No evidence of bowel obstruction. IMPRESSION: Persistent partial obstruction of the right renal upper pole moiety at the 0.6 cm UPJ maurisio culus. The previously placed right ureteral stent decompresses the inferior pole moiety. Left ureteral stent in good position, bypassing the 0.4 cm distal left ureteral calculus. Additional nonobstructing bilateral renal calculi.
[2019-09-16 21:44] LABS: ALT (SGPT) 82 U/L (8-55); AST (SGOT) 34 U/L (5-34); Albumin 4.1 g/dL (3.4-4.8); Alkaline Phosphatase 81 U/L (40-110); Anion Gap 11 mmol/L (10-20); BUN (Urea Nitrogen) 17 mg/dL (8.4-25.7); Bilirubin, Total 0.9 mg/dL (0.2-1.2); Calc. Creatinine Clearance 0 mL/min (70-130); Carbon Dioxide 28 mmol/L (23-31); Chloride 108 mmol/L (98-107); Estimated GFR-MDRD 66; Globulin 2.8 g/dL (2.4-3.5); Glucose 106 mg/dL (80-115); Potassium 3.8 mmol/L (3.5-5.1); Protein, Total 6.9 g/dL (5.8-8.1); Sodium 143 mmol/L (136-145)
[2019-09-16] MEDS ORDERED: Fentanyl 100 MCG/2 ML VIAL ONE (22:15)
[2019-09-17] MEDS ORDERED: Ondansetron PF 4 MG/2 ML Vial IVP PRN ×2 (00:30→11:05)
[2019-09-17] MEDS ORDERED: Ondansetron ODT 4 MG TAB SL PRN (00:30)
[2019-09-17] MEDS ORDERED: Fentanyl 100 MCG/2 ML VIAL SLOW IVP PRN (00:31)
[2019-09-17 00:35] VITALS: BMI 37.3
[2019-09-17] MEDS: Sodium Chloride 0.9% 1,000 ML IV SCH ×4 (00:44→20:43)
[2019-09-17] MEDS ORDERED: FLU VACC TS2019-20(65YR UP)/PF 180 MCG/0.5 ML SYRINGE IM ONE (09:00)
[2019-09-17] MEDS ORDERED: Prevnar 13-Val Conj/PF 0.5 ML SYRINGE IM ONE (09:00)
[2019-09-17] MEDS ORDERED: Morphine 4 MG/ML VIAL SLOW IVP PRN (11:05)
[2019-09-17 21:15] LABS: #Eosinphils 0.3 thou/uL (0.0-0.7); #Lymphocytes 1.7 thou/uL (1.20-3.40); #Monocytes 0.7 thou/uL (0.11-0.59); #Neutrophils 4.5 thou/uL (1.40-6.50); %Basophils 0.6 % (0.0-1.0); %Eosinophils 4.7 % (0.0-10.0); %Lymphocytes 22.9 % (21.0-51.0); %Monocytes 9.5 % (0.0-10.0); %Neutrophils 62.3 % (42.0-75.0); Hemoglobin 13.8 g/dL (14.0-18.0); Mean Corpuscular HGB CONC 33.7 g/dL (32.0-36.0); Mean Corpuscular Hemoglobin 31.4 pg (27.0-31.0); Mean Corpuscular Volume 93.2 fL (78.0-98.0); Mean Platelet Volume 9.2 fL (7.4-10.4); Platelet Count 195 thou/uL (130-400); RBC Distribution Width 11.8 % (11.5-14.5); Red Blood Cell (RBC) Count 4.38 mill/uL (4.70-6.10); White Blood Cell (WBC) Count 7.3 thou/uL (4.8-10.8)
--- NOTE | 2019-09-17 21:21 | HP ---
REASON FOR HOSPITAL ADMISSION: Nephrolithiasis, right lower pole unit obstructed by 3.9 mm calculus. HISTORY OF PRESENT ILLNESS: Mr. Bakari Walker is a pleasant 68-year-old white male, who I am acquainted with due to his history of kidney stones. Mr. Walker was recently evaluated in the emergency department for left-sided ureteral calculus, had severe left flank pain symptoms. This was traced to approximately 4 mm calculus in the left distal ureter. The patient tried a trial of passage at home. He eventually returned to the hospital with acute onset of right-sided flank pain symptoms, which were felt to be intractable. At that point, he did undergo a cystoscopic evaluation and placement of bilateral double-J ureteral stents, this was performed on 09/11/2019. The patient was discharged home in good condition. The patient's right-sided collecting system is bifurcated and his stent was placed into the upper pole unit. The patient has had progression of a lower pole calculus into an obstructing location and is now symptomatic in this bifurcated collecting system. The patient has had nausea and flank pain symptoms, as well as anterior abdominal discomfort. He is desiring intervention for that. MEDICATIONS: Include the followin. Phenazopyridine 97.5 mg p.o. twice daily. 2. VESIcare 5 mg p.o. daily. 3. Metoprolol succinate XL 25 mg p.o. daily. 4. Irbesartan 150 mg p.o. q.a.m. 5. Dulcolax taken on a p.r.n. basis. 6. Benadryl taken on a p.r.n. basis. 7. Tamsulosin 0.4 mg p.o. daily. 8. Zofran ODT. 9. Tylenol with codeine No. 3. 10. Ibuprofen currently suspended due to poor renal function. ALLERGIES: THE PATIENT HAS NO KNOWN DRUG ALLERGIES. PAST MEDICAL HISTORY: 1. Hypertension. 2. Recurrent bilateral nephrolithiasis. 3. Asthma. 4. Hypertension. 5. Renal insufficiency. PAST SURGICAL HISTORY: 1. Left total knee replacement in May of 2010. 2. Right knee arthroscopy. 3. Left biceps tendon surgery. 4. Cholecystectomy. 5. Thyroidectomy. 6. Previous lithotripsy and recent bilateral stents. FAMILY MEDICAL HISTORY: No history of kidney stones. SOCIAL HISTORY: The patient is a smoker and consumes alcohol. PHYSICAL EXAMINATION: VITAL SIGNS: The patient is currently afebrile with a temperature of 98.7, pulse 71, respirations 18, O2 saturation on room air is 97%, and blood pressure is 143/87. GENERAL: This is a pleasant, awake, alert, white male, in no apparent distress. At the time of initial evaluation, he was wearing his CPAP device for a nap. HEAD, EYES, EARS, NOSE, AND THROAT: Extraocular movements are intact. Sclerae anicteric. Oropharynx is clear. NECK: Supple. LUNGS: Clear to auscultation bilaterally. CARDIAC: Regular rate and rhythm without murmur, rub, or gallop. ABDOMEN: Soft, obese, nontender. BACK: There is no acute costovertebral angle tenderness to my evaluation of him, although he is reported to have been severe earlier in the day. GENITOURINARY: Deferred to the operative suite. EXTREMITIES: Appear within normal limits with postsurgical changes to the bilateral knees including knee replacement. LABORATORY STUDIES: The patient's white count is 9400, hemoglobin is 15.5 with hematocrit of 44.3. There is 63.2% neutrophils. Serum chemistries show a blood urea nitrogen of 17 and creatinine of 1.12, improved from his last visit when his blood urea nitrogen was up to 31. The patient's urinalysis on this admission shows greater than 50 red cells per high-power field and 7 to 10 white cells per high-power field. RADIOLOGIC STUDIES: CT scans of the abdomen and pelvis, as well as past CT scans and retrograde pyelogram studies were reviewed in assessment of this patient. Does appear to have a duplicated upper collecting system, which bifurcates somewhere between the bladder and the mid upper collecting system and therefore appears to have some common sheath as a part of its course. The patient's upper collecting system has a stent in place and the lower pole unit has an obstructing calculus at the present time. It is also a renal cystic lesion which does not appear to have water density to it, which needs further characterization with contrast study or ultrasound when appropriate. ASSESSMENT AND PLAN: 1. Bifurcated right collecting system with obstructing calculus in the right lower pole unit. Left upper pole unit with multiple stones also stented present. The patient also has left dilated collecting system and left-sided stent in place with relatively small calculus located just approximately 2 cm distal to the patient's bladder. 2. The patient needs to have stone recovery for chemical analysis. This may further guide his treatment. I note on fluorographic studies that we are not able to clearly identify his calculi suggesting a possibility of uric acid or calcium phosphate type stones. The patient's right lower pole unit obstructing calculus is probably contributing to the patient's pain symptoms. In addition, there is a focal cystic lesion seen associated with patient's kidney of lower pole unit on the right. This could reflect a proteinaceous cyst or possibly even a tumor. A focal infection could also explain the finding. Plan will be to proceed to the operating room for cystoscopy, removal of existing right-sided double-J stent placement with probably two stents on the right side. Consideration could be given to removal and replacement of the left-sided stent since it has been indwelling for a few weeks with consideration for possible ureteroscopic removal of the left-sided distal ureteral calculus. Over 70 minutes of initial consultation, evaluation, coordination of care time was spent in evaluation of this patient today exclusive of any procedures performed. Job ID: [id number]
[2019-09-17 21:44] LABS: ALT (SGPT) 64 U/L (8-55); AST (SGOT) 31 U/L (5-34); Albumin 3.4 g/dL (3.4-4.8); Alkaline Phosphatase 75 U/L (40-110); Anion Gap 13 mmol/L (10-20); BUN (Urea Nitrogen) 13 mg/dL (8.4-25.7); Bilirubin, Total 0.9 mg/dL (0.2-1.2); Calc. Creatinine Clearance 135 mL/min (70-130); Calcium 8.5 mg/dL (7.8-10.44); Carbon Dioxide 23 mmol/L (23-31); Chloride 110 mmol/L (98-107); Estimated GFR-MDRD 84; Globulin 2.6 g/dL (2.4-3.5); Glucose 100 mg/dL (80-115); Potassium 3.6 mmol/L (3.5-5.1); Sodium 142 mmol/L (136-145)
[2019-09-18] MEDS: Sodium Chloride 0.9% 1,000 ML IV SCH (06:05)
[2019-09-18] MEDS ORDERED: Fentanyl 100 MCG/2 ML VIAL ONE (06:20)
[2019-09-18] MEDS ORDERED: Levofloxacin 500 mg/D5W 100 ml Premix Bag ONE (06:27)
[2019-09-18] MEDS ORDERED: Iothalamate Meglumine 60% 50 ML VIAL FS ONE ×2 (06:37→07:42)
[2019-09-18] MEDS ORDERED: Lidocaine 4% Topical Sol 50 ML BOT ONE (06:37)
[2019-09-18] MEDS ORDERED: Morphine Sulfate 2 MG/ML SYRINGE SLOW IVP PRN (06:44)
[2019-09-18] MEDS ORDERED: Ondansetron HCl/PF 4 MG/2 ML Vial IVP PRN (06:44)
[2019-09-18] MEDS ORDERED: HYDROmorphone 2 MG/ML VIAL SLOW IVP PRN (06:44)
[2019-09-18] MEDS ORDERED: Meperidine HCl/PF 25 MG/ML VIAL SLOW IVP PRN (06:44)
[2019-09-18] MEDS ORDERED: Promethazine HCl 25 MG/ML VIAL IM PRN (06:44)
[2019-09-18] MEDS ORDERED: PACU-Morphine 4MG/ML VIAL SLOW IVP PRN (06:44)
[2019-09-18] MEDS ORDERED: Promethazine HCl 25 MG/ML VIAL SLOW IVP PRN (06:44)
[2019-09-18] MEDS ORDERED: B & O ONE (07:05)
[2019-09-18 09:46] VITALS: BP 159/93; TEMP 96.1
[2019-09-18] MEDS ORDERED: EPHEDRINE 25 MG/5 ML SYRINGE ONE (09:50)
[2019-09-18] MEDS ORDERED: PROPOFOL 200 MG/20 ML VIAL ONE (09:50)
[2019-09-18] MEDS ORDERED: PHENYLEPHRINE-NS 100 MCG/ML 10 ML SYRINGE ONE (09:50)
[2019-09-18] MEDS ORDERED: diphenhydrAMINE 50 MG/ML VIAL ONE (09:50)
[2019-09-18] MEDS ORDERED: Ondansetron PF 4 MG/2 ML Vial ONE (09:50)
[2019-09-18] MEDS ORDERED: Dexamethasone 20 MG/5 ML VIAL ONE (09:50)
[2019-09-18] MEDS ORDERED: Lidocaine 1% PF 5 ML VIAL ONE (09:50)
--- NOTE | 2019-09-18 10:10 | RAD ---
BILATERAL RETROGRADE PYELOGRAM: HISTORY: Stent placement. FINDINGS: Limited C-arm views are obtained. These show left-sided stent placement and 2 stents placed within a duplicated collecting system on the right. IMPRESSION: Bilateral stent placement. POS: TPC
[2019-09-18] MEDS ORDERED: Trospium 20 MG TAB PO SCH (14:15)
[2019-09-18] MEDS ORDERED: Phenazopyridine HCl 97.5 MG TABLET PO SCH (14:15)
--- NOTE | 2019-09-18 14:46 | OP ---
DATE OF PROCEDURE: 09/18/[address] CLERK SURGEON: None. PREOPERATIVE DIAGNOSES: 1. Left ureteral calculus, N20.1. 2. Right renal stones, N20.0 with obstructing right upper pole calculus. 3. 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 POSTOPERATIVE DIAGNOSES: 1. Left ureteral calculus, N20.1, removed during this case. 2. Right renal stones, N20.0 including radiolucent and radiopaque stones. 3. Duplication of right collecting system extending to near the right ureteric orifice, likely not a very long distance of common sheath if at all. PROCEDURES PERFORMED: 1. Right lower pole stent replacement, 81243. 2. Right upper pole stent placement [id number]. 3. Left ureteroscopy with stone extraction, 41519. 4. Left stent placement, [id number]. SPECIMENS REMOVED: Left ureteral calculus. ESTIMATED BLOOD LOSS: Less than 1 mL. BRIEF HISTORY AND INDICATION FOR PROCEDURE: Mr. Bakari Walker is a very pleasant 68-year-old white male of Dr. See and also his primary care physician is Dr. Poole. The patient had several presentations to the emergency department for flank pain symptoms including initially a left-sided flank pain symptoms and later right-sided flank pain symptoms. He underwent a bilateral stenting about a week ago and then returned to the emergency department with new onset of right-sided flank pain, which was acute and severe. He underwent CT scanning, which demonstrated duplication of the patient's collecting system, which was suspected from previous evaluation. The patient had no extra ureteric orifice on the right side on previous evaluation. However, he did have drooping anthony configuration noted during stent placement. The patient opted to proceed to the operating room today for stent placement and extraction of the left-sided stone. DESCRIPTION OF PROCEDURE: The patient was appropriately identified in the preoperative holding area. Consent was verified. The patient was brought to the operative suite, placed in the supine position. General anesthesia was established using LMA airway. The patient was repositioned in supine lithotomy position and prepped and draped in usual fashion. Cystoscopic evaluation was performed. We identified one right-sided stent, which was brought back to the ureteral orifice. A 0.035 angled Glidewire was passed along this. We then performed retrograde pyelography of the entire lower pole collecting system using a Pollack catheter placed over the stent. This did not reveal an origin. Ultimately, we found an origin with removal of the wire and a cone-tip retrograde performed at the UO itself. Here, we found a duplicated ureter making insertion in the same ureteric orifice. This made the placement of a Glidewire into this difficult. We were able to place an angled Glidewire and advanced this into the lower pole unit, placed a 4.5-Belarusian x 28 cm double-J ureteral stent. This bypassed the stone, which appeared to be slightly radiopaque. The patient then received a second upper pole stent, which replaced the former stent in that position. Both of these were 4.5 x 28 cm in length. On the left side, we removed the existing stent, performed ureteroscopy, and performed stone extraction of a left ureteral calculus, which appeared to be comprised of uric acid, this was radiolucent stone. This was sent for chemical analysis. The stone size correlated well with the previous imaging. This measuring about 4 mm, but fragmented upon drying. The entire distal left ureter was scoped with the semi-rigid scope beyond the UPJ. There were no additional fragments. We placed a new 4.5 x 28 cm stent in the left collecting system as well. The patient's bladder was drained. A belladonna and opioid suppository were applied per rectum. The patient tolerated the procedure well and was transported to postoperative recovery area in good condition after removal of LMA airway. Job ID: [id number]
== END 2019-09-18 14:52 | disposition home or self-care (01) ==
LOC: ERS 19:24 → SURG A 22:54
PROVIDERS: ADMIT Urology; ATTEND Urology
PROC: 0T788DZ Dilation of Bilateral Ureters with Intraluminal Device, Via Natural or Artificial Opening Endoscopic (ICD-10-PCS; principal; 2019-09-18)
PROC: 0TC78ZZ Extirpation of Matter from Left Ureter, Via Natural or Artificial Opening Endoscopic (ICD-10-PCS; 2019-09-18)
DX: N20.2 Calculus of kidney with calculus of ureter (principal); E89.0 Postprocedural hypothyroidism; I10 Essential (primary) hypertension; F17.200 Nicotine dependence, unspecified, uncomplicated; Q62.5 Duplication of ureter; Z79.899 Other long term (current) drug therapy
CPT/HCPCS: 36415; 74176; 74420; 80048; 80053; 81003; 81015; 82365; 85025; 88300; 90471; 90662; 96361; 96374; 96375; C1758; C1769; G0008; G0103; G0378; J1100; J1200; J1956; J2001; J2270; J2405; J2704; J3010

== ENCOUNTER 2019-10-31 13:55 | Outpatient (CLI) | payer BC ==
--- NOTE | 2019-10-31 14:57 | CT ---
Exam: Abdomen CT without contrast Pelvic CT without contrast HISTORY: Bilateral renal stents. Evaluate for renal calculi. COMPARISON: 09/16/2019 FINDINGS: Abdomen CT: Lung bases:Chronic changes Heart size: Normal heart size. No significant pericardial fluid Aorta: Normal caliber aorta Solid organs: Limited evaluation by the absence of IV contrast. Grossly no solid organ abnormality Lymph nodes: No gastrohepatic, retrocrural or periportal lymphadenopathy Gallbladder: Surgically absent Mesentery: No mass, lymphadenopathy, free air or free fluid Kidneys: There is duplication of the right intrarenal collecting system and right ureter. Two separat e right-sided ureteral stents are identified. The more superior stent does not demonstrate any evidence of a calculus, along the course of the stent. There is a rounded calculus along the course o f the inferior pole stent, measuring 0.5 cm at the L4 level. Additional nonobstructing calculi are noted in the right intrarenal collecting system. Systems Planner calculus measures 0.8 cm. There are n o calcifications along the course of the left ureteral stent. There is a nonobstructing calculus in the left upper pole calyx measuring 0.3 cm. Additional smaller punctate calcification is also noted. Redemonstration of a cyst in the right renal cortex measuring 4.0 x 3.4 cm. Interval mild dilatation of the left intrarenal collecting system. Persistent decompression of the right upper pole intrarenal collecting system. Mild hydronephrosis of the right lower pole intrarenal collecting system. The degree of dilatation has slightly decreased. Alimentary canal: Limited evaluation by the absence of oral contrast. No evidence of bowel obstructio n. Normal caliber appendix. Scattered fecal material in a nondistended, nondilated colon. Diverticulosis, without evidence of diverticulitis. CT PELVIS: No mass, adenopathy, free air or free fluid. Urinary bladder: Distal pigtail of two right and a single left ureteral stent are identified. No muco selma abnormality. No bladder calculi. Osseous structures: No lytic or blastic lesions IMPRESSION: 1. Redemonstration of bilateral nonobstructing intrarenal calculi. 2. Stable positioning of two right and a solitary left ureteral stent. 3. Ureteral calcification along the course of the right lower pole stent as described above. 4. Persistent decompression of the right upper pole intrarenal collecting system. There is mild dilat ation of the right lower pole intrarenal collecting system. The degree of dilatation has slightly decreased. There is mild dilatation of the left intrarenal collecting system which has developed sinc e the previous exam. Transcribed Date/Time: 10/31/2019 5:17 PM
== END 2019-10-31 13:56 | disposition home or self-care (01) ==
LOC: BICCT 13:55
PROVIDERS: ATTEND Urology
DX: N20.2 Calculus of kidney with calculus of ureter (principal); N28.89 Other specified disorders of kidney and ureter; Z96.0 Presence of urogenital implants
CPT/HCPCS: 36415; 74176; 80053

== ENCOUNTER 2020-01-02 13:40 | Outpatient (CLI) | payer BC ==
--- NOTE | 2020-01-02 16:15 | CT ---
CT ABDOMEN AND PELVIS WITHOUT IV CONTRAST: 01/02/20 INDICATIONS: Ureteral and renal calculi. Ureteral stents and ureteral calculi. Follow-up. Comparison made to recent CT abdomen and pelvis 10/31/19. FINDINGS: Lung bases are clear. Liver, spleen, pancreas unremarkable. Adrenal glands normal. Small and large bowel appear unremarkabl e and stable. Review of the urinary tract again shows bilateral ureteral stents. There is a double collecting syste m on the right and there are two right ureteral stents in place. A single left ureteral stent is note d. The stents appear adequately positioned. There is adequate drainage of the upper collecting structures. There is no hydronephrosis seen on eit her side. There is a 4 mm calculus seen adjacent to the stents in the distal right ureter for which i s producing slight right ureteral prominence at this location. This probably corresponds to the calci fication seen in the upper right ureter on the prior exam of 10/31/19. No other ureteral calculus identified. There are several tiny calcifications seen in the lower pole c ollecting structures of the right kidney which measure in the 1 to 2 mm range. There may be a tiny ca lcification in the right upper pole collecting structures. The right renal cystic lesion which measures approximately 4 cm are stable. IMPRESSION: 1. No evidence of hydronephrosis on either side. The ureteral stents appear adequately positione d. 2. A 4 mm calculus in the distal right ureter just proximal to the UVJ with mild ureteral dilata tion at this site. 3. Tiny nonobstructing calculi in the upper collecting structures of the right kidney. 4. Right renal cyst again noted. POS: CRISPIN
== END 2020-01-02 13:41 | disposition home or self-care (01) ==
LOC: BICCT 13:40
PROVIDERS: ATTEND Urology
DX: N20.2 Calculus of kidney with calculus of ureter (principal); N28.1 Cyst of kidney, acquired; Z96.0 Presence of urogenital implants
CPT/HCPCS: 74176

== ENCOUNTER 2020-01-07 06:42 | Outpatient (CLI) | payer BC, OTHER ==
[2020-01-08 13:10] LABS: SARS-CoV-2 MS2 Positive; SARS-CoV-2 N Gene Negative; SARS-CoV-2 S Gene Negative; SARS-CoV-2 orf1ab Negative
== END 2020-01-07 06:43 | disposition home or self-care (01) ==
LOC: LABBT 06:42
PROVIDERS: ATTEND Urology
DX: Z01.812 Encounter for preprocedural laboratory examination (principal); Z11.59 Encounter for screening for other viral diseases; N20.2 Calculus of kidney with calculus of ureter
CPT/HCPCS: 87635; U0003

== ENCOUNTER 2020-01-11 05:55 | Day surgery (SDC) | payer BC ==
[2020-01-07 11:54] VITALS: BMI 34.9
[2020-01-11] MEDS ORDERED: cefTRIAXone\\ROCEPHIN 2 GM VIAL ONE (06:29)
[2020-01-11] MEDS ORDERED: Sodium Chloride 0.9% 100 ML ONE (06:30)
[2020-01-11 06:43] LABS: #Eosinphils 0.2 thou/uL (0.0-0.7); #Lymphocytes 1.7 thou/uL (1.20-3.40); #Monocytes 0.8 thou/uL (0.11-0.59); #Neutrophils 4.5 thou/uL (1.40-6.50); %Basophils 0.5 % (0.0-1.0); %Eosinophils 2.5 % (0.0-10.0); %Monocytes 10.9 % (0.0-10.0); %Neutrophils 63.1 % (42.0-75.0); Hemoglobin 16.6 g/dL (14.0-18.0); Mean Corpuscular HGB CONC 34.2 g/dL (32.0-36.0); Mean Corpuscular Hemoglobin 32.6 pg (27.0-31.0); Mean Corpuscular Volume 95.3 fL (78.0-98.0); Platelet Count 185 thou/uL (130-400); Red Blood Cell (RBC) Count 5.09 mill/uL (4.70-6.10); White Blood Cell (WBC) Count 7.2 thou/uL (4.8-10.8)
[2020-01-11 07:01] LABS: Anion Gap 9 mmol/L (10-20); BUN (Urea Nitrogen) 16 mg/dL (8.4-25.7); Calc. Creatinine Clearance 129 mL/min (70-130); Calcium 8.7 mg/dL (7.8-10.44); Carbon Dioxide 28 mmol/L (23-31); Chloride 106 mmol/L (98-107); Estimated GFR-MDRD 86; Glucose 97 mg/dL (80-115); Potassium 3.8 mmol/L (3.5-5.1); Sodium 139 mmol/L (136-145)
[2020-01-11] MEDS ORDERED: Iopamidol 50 ML FS ONE (07:08)
--- NOTE | 2020-01-11 07:48 | RAD ---
Exam: Chest one view HISTORY:Preoperative exam. Comparison: 03/18/2017 FINDINGS: Cardiac silhouette:Upper normal cardiac silhouette. Rightward deviation of the trachea. Aorta: Slightly elongated Pulmonary vessels: Normal Costophrenic angles: Clear LUNGS: No masses or consolidation. Chronic lung parenchymal changes. Pneumothorax: None Osseous abnormalities: Left humeral prosthesis IMPRESSION: 1. No acute cardiac pulmonary process 2. Rightward deviation the trachea. The possibility of a mediastinal mass cannot be excluded. Conside r CT CODE T
[2020-01-11] MEDS ORDERED: B & O ONE (08:06)
[2020-01-11] MEDS ORDERED: Ketamine 50 MG/ML (10ML VIAL) ONE (08:09)
[2020-01-11] MEDS ORDERED: Metoprolol Tartrate 5 MG/5 ML VIAL ONE (08:25)
[2020-01-11] MEDS ORDERED: Bupivacaine HCl 0.5%/Epinephrine 1:200,000/PF 30 ml Vial ONE (11:00)
[2020-01-11] MEDS ORDERED: Lidocaine 1% PF 5 ML VIAL ONE (11:00)
[2020-01-11] MEDS ORDERED: Ondansetron PF 4 MG/2 ML Vial ONE (11:00)
[2020-01-11] MEDS ORDERED: Dexamethasone 20 MG/5 ML VIAL ONE (11:00)
[2020-01-11] MEDS ORDERED: EPHEDRINE 25 MG/5 ML SYRINGE ONE (11:00)
[2020-01-11] MEDS ORDERED: PHENYLEPHRINE-NS 100 MCG/ML 10 ML SYRINGE ONE (11:00)
[2020-01-11] MEDS ORDERED: Glycopyrrolate 0.2 MG/ML 5 ML SYRINGE ONE (11:00)
[2020-01-11] MEDS ORDERED: PROPOFOL 200 MG/20 ML VIAL ONE (11:00)
--- NOTE | 2020-01-11 11:05 | RAD ---
Exam: Retrograde IVP Exposure: 25 mg, 2 minutes and 30 seconds FINDINGS: Multiple intraprocedural images demonstrate removal of a left ureteral stent. Replacement o f 2 right ureteral stents. IMPRESSION: Intraoperative fluoroscopy as above
--- NOTE | 2020-01-11 17:08 | OP ---
DATE OF PROCEDURE: 01/11/2020 PREOPERATIVE DIAGNOSES: 1. 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 2. Right renal calculi, N20.0, in the upper pole unit. 3. Right ureteral calculi in the lower pole ureter, N20.1. 4. Indwelling left ureteral stent after passage of left renal calculus. POSTPROCEDURE DIAGNOSES: 1. 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 2. Right renal calculi, N20.0, in the upper pole unit. 3. Right ureteral calculi in the lower pole ureter, N20.1. 4. Indwelling left ureteral stent after passage of left renal calculus. PROCEDURES PERFORMED: 1. Cystourethroscopy with ureteroscopy and laser lithotripsy, lower pole ureter on the right side, 98253. 2. Ureteroscopy with cystoscopy and laser lithotripsy of upper pole right renal calculi, 38147. 3. Cystourethroscopy with right-sided retrograde pyelography, 21742. 4. Cystourethroscopy with bilateral stents, 69635-B. 5. Left ureteral stent removal, 46683. RESEARCH AND DEVELOPMENT SCIENTIST SURGEON: None. SPECIMENS REMOVED: 1. Right renal upper pole unit calculi removed. These were radiopaque with an apparent uric acid coating. 2. Right ureteral lower pole calculi, also appearing to be calcium oxalate with uric acid coating based on the appearance of the stones. ESTIMATED BLOOD LOSS: 0 mL. OPERATIVE FINDINGS: 1. Radiopaque dark colored stones with uric acid coating. 2. Two stents now replaced in the right ureter, left-sided stent removed, one stent in upper pole ureter and one stent in the lower pole ureter on the right side. 3. Radiographically and ureteroscopically free of residual calculi in the right collecting system. No imaging required for stent removal. BRIEF HISTORY AND INDICATION FOR PROCEDURE: Mr. 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 He at presentation has three stents in, one on the left side, which no longer contained any stones and two stents in the right ureters, one in the upper pole unit ureter and another one in the lower pole unit ureter. These ureters proceeded all the way to the patient's bladder and are functionally two separate systems, both exited in a common ureteric opening, but the two openings can be observed from within the bladder with a scope. Functionally, two complete separate kidneys and collecting systems, though jointed at the parenchymal level in the patient's body. The patient also has a right lower pole cyst, which has some density to it, suggesting the need for further imaging and evaluation studies in the future. He presents today for treatment of right-sided kidney stones in the upper pole of the right kidney, multiple stones were located there, and a distal ureteral calculus on the right side in the lower pole unit. Lower pole renal stones are not addressed in today's procedure. Left-sided indwelling stent is to be removed. DESCRIPTION OF PROCEDURE: The patient was brought to the operative suite, was placed in the supine position. General anesthesia was established using an LMA airway. The patient was repositioned in supine lithotomy position, prepped and draped in usual sterile fashion. Cystoscopic evaluation was performed. We attempted to pass wires through existing stents on the right side. However, the existing stents were occluded. We therefore removed the indwelling stents on the right side and also removed the patient's left-sided stent, which no longer is required due to passage of ureteral calculi. The patient then underwent a ureteroscopic evaluation and replacement of wires into the ureters on the right side. I placed one wire in the upper pole unit and one wire in the lower pole unit adjacent to the ureteral calculus. This was advanced up into the collecting system. We then performed a right lower pole distal ureteroscopy using a semi-rigid scope. We performed laser lithotripsy of a 4 mm calculus located in this location. Stone was dark in color, suggestive of calcium oxalate and has a yellow uric acid type coating. Most of the coating had been dissolved by medical therapy over a period of weeks. Laser lithotripsy was performed fragmenting his large stone into three large fragments and some dust. We used a holmium laser with a 200 micron fiber using pulse settings of 40 hertz and 0.5 joules per pulse. Fragmentation occurred rapidly with small dust particles being generated. The patient underwent complete ureteroscopic removal of all fragments, which were basketball. The Glidewire that was utilized for access was left in place for the remainder of the procedure until stenting. We then turned our attention to the separate right upper pole unit. We placed a 12 x 14-Italian VisConPro ureteral access sheath in place. We then used a flexible digital Botkins ureteroscope to perform a ureteroscopic evaluation of the patient's collecting system. We identified multiple reasonably large stones. Most of these, we were able to manipulate back into a location, where a laser lithotripsy could be performed. Three large stones were removed, measuring approximately 4 mm each. These were fragmented into multiple small fragments and dust. The stone again here had a radiopaque appearance by fluorography and had a dark colored core with a uric acid coating. Most of the uric acid coating had been dissolve by medical therapy as described for the lower pole ureteral calculus. The stone fragments were recovered and the patient was left ureteroscopically and fluoroscopically free of residual calculi in the upper pole unit. At the close of this portion of the ureteroscopy procedure, we performed retrograde pyelography again and removed the access sheath. We left a Glidewire in place and utilized the Glidewire for placement of stents. Cystoscopic performance of stent placement was then performed using a 4.5-Italian x 28 cm double-J ureteral stents. We placed one in the upper pole unit and one separately in the lower pole unit. We removed the wires as well as the strings from the stent. Good coil was obtained in the upper collecting system and in the patient's bladder. The patient's bladder was drained at close of the procedure. After removal of instrumentation, a belladonna and opioid suppository was applied per rectum for bladder spasm control. The patient tolerated the procedure well with no evident complications. Blood loss was zero. EQUIPMENT: No malfunctions noted. INDWELLING DRAINS AND TUBES: 1. A 4.5-Italian x 28 cm double-J ureteral stent in the right upper pole unit ureter. 2. A 4.5-Italian x 28 cm stent placed in the right lower pole unit. SPECIMENS: 1. All of the previously placed stents were removed in this procedure and the two right-sided stents were replaced. The left-sided stent was not replaced. Specimens of the of the stents were not sent for pathology. 2. Right upper pole unit calculi for chemical analysis. 3. Right lower pole unit ureteral calculus for chemical analysis. Job ID: [id number]
--- NOTE | 2020-01-12 00:25 | DIS ---
DATE OF ADMISSION: 01/11/2020 DATE OF DISCHARGE: 01/11/2020 ADMISSION DIAGNOSES: As follows: 1. 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 2. Right renal upper pole unit calculi, N20.0. 3. Right lower pole ureteral calculi, N20.1. 4. Left indwelling ureteral stent. 5. Bilateral indwelling ureteral stents. DISCHARGE DIAGNOSES: 1. 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 2. Right renal calculi upper pole unit, N20.0 (radiopaque stones with apparent uric acid coating). 3. Right lower pole ureteral stones, N20.1 (radiopaque calculi with probable uric acid coating). 4. Left ureteral stent. 5. Right ureteral stents replaced. 6. Left ureteral stent removed during the procedure. PROCEDURES PERFORMED: 1. Cystourethroscopy with laser lithotripsy of the lower pole ureter calculus on the right, 54578. 2. Cystourethroscopy, laser lithotripsy of upper pole right kidney calculi, 83696-K. 3. Cystourethroscopy with right retrograde pyelography, 95054. 4. Cystourethroscopy with right-sided stent placement x2, 07944. 5. Cystourethroscopy with a left-sided stent removal, 00900. HOSPITAL COURSE: Please see the patient's operative note separately dictated covering the patient's operative procedures, which included removal and replacement of the right-sided stents as well as removal of the left-sided stent as well as removal of upper pole unit calculi and the right ureteral calculus in the lower pole unit. The patient tolerated the procedure well, was discharged home with two stents in place on the right side, one in the upper pole unit ureter and one in the lower pole unit ureter. Left-sided stent was removed during the course of the procedure. DISCHARGE MEDICATIONS: Include the followin. VESIcare 5 mg p.o. daily. 2. Phenazopyridine 97.5 mg t.i.d. 3. Zofran ODT 4 mg tabs as needed. 4. Metoprolol succinate 25 mg p.o. daily. 5. Levofloxacin 500 mg p.o. daily. 6. Irbesartan 150 mg p.o. q.a.m. 7. Benadryl 50 mg p.o. q.4 hours p.r.n. as needed. 8. Dulcolax suppository 10 mg rectally as needed for constipation. 9. Acetaminophen with codeine No. 3 one to two tabs p.o. q.4 to 6 hours p.r.n. for pain. 10. Tamsulosin 0.4 mg p.o. daily. 11. Valsartan one tablet 160 mg p.o. daily. FOLLOWUP: The patient is to follow up in the [facility] for cystoscopy and stent removal on the right side x2 stents on Tuesday01/22/2020 at 11:30 a.m. At that point, we will plan on scheduling him for risk evaluation as well as additional imaging for a right renal lower pole unit cyst, which appears complicated. Job ID: [id number]
--- NOTE | 2020-01-12 10:48 | EKG ---
Test Reason : PREOP Blood Pressure : / mmHG Vent. Rate : 064 BPM Atrial Rate : 064 BPM P-R Int : 184 ms QRS Dur : 102 ms QT Int : 414 ms P-R-T Axes : 041 002 021 degrees QTc Int : 427 ms Normal sinus rhythm Normal ECG When compared with ECG of 07-AUG-2018 16:02, No significant change was found Confirmed by DR. Stephane RODRIGUEZ ([id number]) on 01/12/2020 10:47:51 AM Referred By: Kurtis LEGGETT Confirmed By:DR. Stephane RODRIGUEZ
[2020-01-24 09:15] LABS: CA Oxalate Dihydrate 30 % (.); CA Oxalate Monohydrate 65 % (.); CA Oxalate Monohydrate 70 % (.); Color Brown (.); Color Tan (.); Stone Weight 44 mg (.); Stone Weight 72 mg (.)
== END 2020-01-11 14:15 | disposition home or self-care (01) ==
LOC: SDC 05:55
PROVIDERS: ATTEND Urology
PROC: 0TC38ZZ Extirpation of Matter from Right Kidney Pelvis, Via Natural or Artificial Opening Endoscopic (ICD-10-PCS; principal; 2020-01-11)
PROC: 0TC68ZZ Extirpation of Matter from Right Ureter, Via Natural or Artificial Opening Endoscopic (ICD-10-PCS; principal; 2020-01-11)
PROC: 0T768DZ Dilation of Right Ureter with Intraluminal Device, Via Natural or Artificial Opening Endoscopic (ICD-10-PCS; principal; 2020-01-11)
DX: N20.2 Calculus of kidney with calculus of ureter (principal); Q62.5 Duplication of ureter; N35.919 Unspecified urethral stricture, male, unspecified site; I12.9 Hypertensive chronic kidney disease with stage 1 through stage 4 chronic kidney disease, or unspecified chronic kidney disease; N18.9 Chronic kidney disease, unspecified; K21.9 Gastro-esophageal reflux disease without esophagitis; G47.30 Sleep apnea, unspecified; Z87.891 Personal history of nicotine dependence; Z79.82 Long term (current) use of aspirin; Z79.899 Other long term (current) drug therapy
CPT/HCPCS: 36415; 71045; 74420; 80048; 82365; 85025; 88300; 93005; 93010; J0670; J0696; J1100; J2001; J2405; J2704; J3490; Q9967

== ENCOUNTER 2020-04-09 14:56 | Emergency (ER) | payer BC ==
[2020-04-09] MEDS ORDERED: Ondansetron PF 4 MG/2 ML Vial ONE (15:25)
[2020-04-09] MEDS ORDERED: Ketorolac Tromethamine 30 MG/ML VIAL ONE (15:25)
[2020-04-09] MEDS ORDERED: Morphine 4 MG/ML VIAL ONE ×2 (15:25→15:32)
[2020-04-09 15:58] LABS: #Lymphocytes 1.6 thou/uL (1.20-3.40); #Monocytes 1.3 thou/uL (0.11-0.59); #Neutrophils 12.1 thou/uL (1.40-6.50); %Basophils 0.3 % (0.0-1.0); %Eosinophils 0.3 % (0.0-10.0); %Lymphocytes 10.4 % (21.0-51.0); %Monocytes 8.8 % (0.0-10.0); %Neutrophils 80.2 % (42.0-75.0); Hemoglobin 16.3 g/dL (14.0-18.0); Mean Corpuscular Volume 93.9 fL (78.0-98.0); Platelet Count 160 thou/uL (130-400); RBC Distribution Width 12.2 % (11.5-14.5); Red Blood Cell (RBC) Count 5.12 mill/uL (4.70-6.10); White Blood Cell (WBC) Count 15.1 thou/uL (4.8-10.8)
[2020-04-09 16:03] LABS: Bilirubin Negative (Negative); Blood, Urine Negative (Negative); Clarity Turbid (Clear); Glucose, Urine (Dipstick) Normal (Negative); Ketone, Urine 10 mg/dL (Negative); Leukocyte Negative Leu/uL (Negative); Nitrite Negative (Negative); Protein, Urine (Dipstick) 10 mg/dL (Neg-Trace); Specific Gravity, Urine 1.019 (1.002-1.036); Urobilinogen Normal mg/dL (Less than 2)
[2020-04-09 16:16] LABS: ALT (SGPT) 21 U/L (8-55); AST (SGOT) 16 U/L (5-34); Albumin 4.1 g/dL (3.4-4.8); Alkaline Phosphatase 53 U/L (40-110); Anion Gap 15 mmol/L (10-20); BUN (Urea Nitrogen) 22 mg/dL (8.4-25.7); Bilirubin, Total 1.6 mg/dL (0.2-1.2); Calc. Creatinine Clearance 0 mL/min (70-130); Calcium 8.9 mg/dL (7.8-10.44); Carbon Dioxide 22 mmol/L (23-31); Chloride 107 mmol/L (98-107); Estimated GFR-MDRD 58; Globulin 2.5 g/dL (2.4-3.5); Glucose 111 mg/dL (80-115); Protein, Total 6.6 g/dL (5.8-8.1); Sodium 140 mmol/L (136-145)
--- NOTE | 2020-04-09 16:19 | CT ---
CT ABDOMEN AND PELVIS WITHOUT IV CONTRAST: 04/09/20 INDICATIONS: Left flank pain. COMPARISON: Comparison made to CT abdomen and pelvis 01/02/20. Bilateral ureteral stents were present at that time. Double collecting structures on the right and th ere were two right sided ureteral stents in place with a calculus in the distal right ureter. FINDINGS: Lung bases clear. The ureteral stents have been removed. The large cystic lesion in the mid right kidney is stable. Sma ll nonobstructing calculi in the upper collecting structures of the lower moiety on the right. No maurisio culi is seen in the upper moiety on the right. On the left side, there is hydronephrosis and left perinephric stranding which is new. There is hydro ureter on the left. There is an obstructing calculus in the mid to distal left ureter measuring appro ximately 4 mm. Tiny nonobstructing calculus in a mid pole collecting structures of the left kidney. The liver, spleen, pancreas, adrenal glands remain unremarkable. Bowel loops unremarkable. No other i nterval change. IMPRESSION: 1. 4 mm obstructing calculus in the distal left ureter producing left hydronephrosis and left pe rinephric stranding. 2. There are tiny nonobstructing calculi in the upper collecting structures of both kidneys. POS: AH
[2020-04-09] MEDS ORDERED: HYDROcodone/Acetaminophen 10/325 mg Tablet ONE (17:55)
== END 2020-04-09 18:13 | disposition home or self-care (01) ==
LOC: ERS 14:56
DX: N13.2 Hydronephrosis with renal and ureteral calculous obstruction (principal); I10 Essential (primary) hypertension; Z87.891 Personal history of nicotine dependence
CPT/HCPCS: 74176; 80053; 81003; 85025; 96374; 96375; J1885; J2270; J2405